=== PATIENT | female | born 1995 | race African-American/Black ===

== ENCOUNTER 2016-12-16 12:52 | Emergency (ER) | payer OTHER ==
[~2016-12-16] VITALS: Ht 165.1 cm; Wt 62.0 kg
[~2016-12-16 12:52] MED LIST: Z.0.NO CURRENT MEDS
[2016-12-16 12:54] VITALS: BP 133/97; PULSE 76; RESP 20; TEMP 98.5; O2SAT 98
[2016-12-16] MEDS ORDERED: NALOXONE HCL 2 MG/2 ML VIAL ONE (13:12)
[2016-12-16] MEDS ORDERED: NALOXONE HCL 0.4 MG/ML AMP ONE ×2 (13:13→13:14)
[2016-12-16] MEDS ORDERED: SUCCINYLCHOLINE CHLORIDE 200 MG/10 ML VIAL ONE (13:17)
[2016-12-16] MEDS ORDERED: ETOMIDATE 20 MG/10 ML VIAL ONE (13:17)
[2016-12-16] MEDS ORDERED: ACETAMINOPHEN 325 MG TAB PO ONE (13:45)
--- NOTE | 2016-12-16 14:09 | PD ---
HPI Chief Complaint: Dizziness Time Seen by Provider: 13:26 Travel History International Travel<30 days: No Contact w/Intl Traveler<30days: No Traveled to known affect area: No History of Present Illness HPI 20 yo female complains of forgetfulness and difficulty concentrating and occipital cephalgia for approximately 1 week. She reports 5 concussions within the past 5 months during [employer] training. She was sent here by her primary doctor, Dr. Lucas, for CT scan. 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) Migraines: Yes (HEADACHES A LOT) Seizures: No Thyroid Disease: No Ulcer: No ?: Not Past Surgical History Surgical History: No Previous Surgery Appendectomy: No Section: No Cholecystectomy: No Other Surgery: No Social History Alcohol Use: No Tobacco Use: No Substance Use: No Allergies-Medications (Allergen,Severity, Reaction): Coded Allergies: Apple (Verified Allergy, Severe, 04/04/13) Augmentin (Verified Allergy, Mild, 08/21/06) Milk (Verified Allergy, Mild, 08/21/06) Uncoded Allergies: BLACK ANTS (Allergy, Severe, THROAT SWELLING, 08/21/06) APPLE JUICE (Allergy, Mild, 08/21/06) Reported Meds & Prescriptions Reported Meds & Active Scripts Active Zofran Odt (Ondansetron Odt) 4 Mg Tab 4 Mg SL Q6HR PRN Reported No Current Meds (Miscellaneous Medication) [facility] Physical Exam Narrative GENERAL: 20 yo F, WNWD, NAD, speaking full sentences SKIN: Warm and dry. HEAD: Atraumatic. Normocephalic. EYES: Pupils equal and round. No scleral icterus. No injection or drainage. ENT: No nasal bleeding or discharge. Mucous membranes pink and moist. NECK: Trachea midline. No JVD. CARDIOVASCULAR: Regular rate and rhythm. RESPIRATORY: No accessory muscle use. Clear to auscultation. Breath sounds equal bilaterally. GASTROINTESTINAL: Abdomen soft, non-tender, nondistended. Hepatic and splenic margins not palpable. MUSCULOSKELETAL: Extremities without clubbing, cyanosis, or edema. No obvious deformities. NEUROLOGICAL: CN III-XII normal. Mentation, memory and speech normal. Normal ambulation. PSYCHIATRIC: Appropriate mood and affect; insight and judgment normal. Data Data Last Documented VS Vital Signs Date Time Temp Pulse Resp B/P Pulse Ox O2 Delivery O2 Flow Rate FiO2 12/16/16 12:54 98.5 76 20 133/97 98 Room Air Orders Naloxone Inj (Narcan Inj) (12/16/16 13:12) Naloxone Inj (Narcan Inj) (12/16/16 13:13) Naloxone Inj (Narcan Inj) (12/16/16 13:14) Etomidate Inj (Amidate Inj) (12/16/16 13:17) Succinylcholine Inj (Quelicin Inj) (12/16/16 13:17) Ct Brain W/O Iv Contrast(Rout) (12/16/16 13:45) Acetaminophen (Tylenol) (12/16/16 13:45) Ondansetron Odt (Zofran Odt) (12/16/16 14:30) MDM Medical Decision Making Medical Screen Exam Complete: Yes Emergency Medical Condition: Yes Differential Diagnosis CHI, concussion, post-concussive syndrome, ICH Narrative Course Last [address] 12/16/16 1345 Signed Impressions: Service Date/Time: November 14:13 - CONCLUSION: Normal examination for a patient of this age. Balaji Boateng MD The patient is resting comfortably and feels better, is alert and in no distress. The patients results and examination findings were discussed. The repeat examination is unremarkable and benign. The history, exam, diagnostic testing, and current condition do not suggest any significant pathology to warrant further testing, continued ED treatment, admission, or surgical evaluation at this point. The vital signs have been stable. The patient does not have uncontrollable pain, intractable vomiting, or other significant symptoms. The patient's condition is stable and appropriate for discharge. The patient will pursue further outpatient evaluation with a primary care physician or other designated or consulting physician as indicated in the discharge instructions. The patient expressed understanding and was agreeable with this plan. Diagnosis Primary Impression: Post concussion syndrome Additional Impression: Nausea Referrals: Mary Boggs MD 2 days Additional Instructions: You have a choice when it comes to health care, and we are glad that you chose [email or web address]. Hopefully, we have met your expectations on today's visit. You are welcome to return to [facility] at any time, as we are committed to meeting the health care needs of our community. Med/Other Pt SpecificInfo: Prescription(s) given Scripts Ondansetron Odt (Zofran Odt)4 Mg Tab4 Mg SL Q6HR PRN (Nausea/Vomiting) #10 TAB Ref 0 Prov:Dariel Blandon MD 12/16/16 Disposition: 01 DISCHARGE HOME Condition: Stable Dariel Blandon MD December 16, 2016 14:09
[2016-12-16] MEDS ORDERED: ONDANSETRON ODT 4 MG TAB PO ONE (14:30)
--- NOTE | 2016-12-16 14:37 | RADRPT ---
EXAM DATE/TIME: 12/16/2016 14:13 [facility] COMPARISON: No previous studies available for comparison. INDICATIONS : Headache and dizziness. RADIATION DOSE: 56.35 CTDIvol (mGy) MEDICAL HISTORY : Anorexia/ Bulemia SURGICAL HISTORY : None. ENCOUNTER: Initial ACUITY: 1 day PAIN SCALE: 2/10 LOCATION: Bilateral posterior head TECHNIQUE: Multiple contiguous axial images were obtained of the head. Using automated exposure control and adj ustment of the mA and/or kV according to patient size, radiation dose was kept as low as reasonably a chievable to obtain optimal diagnostic quality images. FINDINGS: CEREBRUM: The ventricles are normal for age. No evidence of midline shift, mass lesion, hemorrhage or acute in farction. No extra-axial fluid collections are seen. POSTERIOR FOSSA: The cerebellum and brainstem are intact. The 4th ventricle is midline. The cerebellopontine angle i s unremarkable. EXTRACRANIAL: The visualized portion of the orbits is intact. SKULL: The calvaria is intact. No evidence of skull fracture. CONCLUSION: Normal examination for a patient of this age. Balaji Boateng MD on December 16, 2016 at 14:34 Board Certified Radiologist. This report was verified electronically.
[2016-12-16] MEDS ORDERED: ZOFR4TAB3 SL (14:49)
== END 2016-12-16 15:28 | disposition home or self-care (01) ==
LOC: NEPD 12:52
DX: F07.81 Postconcussional syndrome (principal); R11.0 Nausea
CPT/HCPCS: 70450; 99284; J2310; J0330